=== PATIENT | female | born 1950 | race Asian ===

== ENCOUNTER 2018-10-16 13:07 | Outpatient (CLI) | payer OTHER ==
[2018-10-17] MEDS ORDERED: AMLO5TAB4 PO (06:15)
[2018-10-17] MEDS ORDERED: DULA0.75 SC (06:15)
== END 2018-10-16 23:59 | disposition home or self-care (01) ==
LOC: WOUND 13:07
PROVIDERS: ATTEND Internal Medicine
DX: I87.312 Chronic venous hypertension (idiopathic) with ulcer of left lower extremity (principal); L97.222 Non-pressure chronic ulcer of left calf with fat layer exposed; I89.0 Lymphedema, not elsewhere classified; E78.5 Hyperlipidemia, unspecified; E03.9 Hypothyroidism, unspecified
CPT/HCPCS: 99205

== ENCOUNTER 2018-10-16 14:24 | Inpatient (IN) | payer OTHER ==
[~2018-10-16] VITALS: Ht 157.5 cm; Wt 75.6 kg
--- NOTE | 2018-10-16 14:38 | NUR ---
Pt ambulates to room from triage with steady gait and balance. NADN. No obvious defecits observed.
--- NOTE | 2018-10-16 14:58 | NUR ---
Pt presents to ED with c/o Left lower extremity extensive circumfrental wound. Pt newly diagnosed diabetic and newly started on insulin. Pt has PMH of high blood pressure. Pt connected to NIBP, continous pulse ox, and quality assurance monitor body. Bedrails up x 2. Call light within reach. Family at bedside. NADN. No needs expressed. Pt denies cp, sob, n/v/d, syncope.
[2018-10-16 15:43] LABS: BASOPHILS # (AUTO) 0.07 x10^3/uL (0-0.1); BASOPHILS % (AUTO) 1 % (0-1); EOSINOPHILS # (AUTO) 0.29 x10^3/uL (0-0.4); EOSINOPHILS % (AUTO) 3 % (1-7); LYMPHOCYTES # (AUTO) 1.42 x10^3/uL (1-3.4); LYMPHOCYTES % (AUTO) 17 % (22-44); MD NO; MEAN CORPUSCULAR HEMOGLOBIN 28.1 pg (27.0-34.8); MEAN CORPUSCULAR HGB CONC 32.5 g/dL (32.4-35.8); MEAN CORPUSCULAR VOLUME 86.3 fL (80-100); MEAN PLATELET VOLUME 7.7 fL (7.4-10.4); MONOCYTES # (AUTO) 0.68 x10^3/uL (0.2-0.8); MONOCYTES % (AUTO) 8 % (2-9); NEUTROPHILS # (AUTO) 6.01 x10^3/uL (1.8-6.8); NEUTROPHILS % (AUTO) 71 % (42-75); PLATELET COUNT 328 x10^3/uL (130-400); RED BLOOD COUNT 4.09 x10^6/uL (3.82-5.3); RED CELL DISTRIBUTION WIDTH 15.8 % (9.6-15.2)
[2018-10-16 15:55] LABS: ALANINE AMINOTRANSFERASE 21 U/L (12-78); ALBUMIN 2.8 g/dL (3.4-5.0); ANION GAP 9 mmol/L (5-15); CALCIUM 8.4 mg/dL (8.5-10.1); CHLORIDE 108 mmol/L (98-107); CREATININE 0.73 mg/dL (0.55-1.02)
[2018-10-16 15:57] LABS: ALKALINE PHOSPHATASE 65 U/L (45-117); BILIRUBIN,TOTAL 0.3 mg/dL (0.2-1.0); TOTAL PROTEIN 7.9 g/dL (6.4-8.2)
--- NOTE | 2018-10-16 16:55 | NUR ---
Pt resting on gurney. Provided pt coffee with cream per request. EDMD aware. NADN. Pt resting on gurney connected to NIBP cuff, continous pulse ox, and surveillance system monitor. Bedrail up x 1, daughter and spouse and admitting doctor at bedside. Call light within reach.
--- NOTE | 2018-10-16 16:57 | NUR ---
Pt's daughter to bring in home med list/home meds. Unable to reconcile medications from home at this time.
--- NOTE | 2018-10-16 17:19 | NUR ---
Provided report to JAKE Owen. All questions answered. Pt ready to transfer to floor from ED.
--- NOTE | 2018-10-16 17:23 | NUR ---
Yellow slip sent to lab requesting medication per EMAR.
--- NOTE | 2018-10-16 17:25 | NUR ---
Pt transfered to floor from ED and left with all personal belongings.
[2018-10-16] MEDS ORDERED: MEROPENEM 1 GM in SODIUM CHLORIDE 0.9% 100 ML IV ONE (17:30)
[2018-10-16] MEDS ORDERED: DOCUSATE 100 MG CAPSULE PO PRN (17:30)
[2018-10-16] MEDS ORDERED: ACETAMINOPHEN 325 MG TABLET PO PRN (17:30)
[2018-10-16] MEDS: ENOXAPARIN 40 MG/0.4 ML SQ SCH (17:30)
[2018-10-16] MEDS ORDERED: hydrALAzine 20 MG/ML, 1ML IVPush PRN (17:30)
[2018-10-16] MEDS: PIPERACILLIN/TAZO/PMX 3.375GM 50 ML IV SCH ×2 (18:13→23:54)
[2018-10-16 19:48] VITALS: BP 141/85
[2018-10-16] MEDS: INSULIN LISPRO 100 UNITS/ML, PEN SQ-INSULIN SCH (21:41)
[2018-10-16] MEDS: INSULIN GLARGINE 100 UNITS/ML, PEN SQ-INSULIN SCH (21:41)
[2018-10-16] MEDS: HYDROcodone/APAP 5/325 TABLET PO PRN (21:41)
[2018-10-16] MEDS: MORPHINE SULFATE 4 MG/ML, 1ML IVPush PRN (23:54)
[2018-10-17 02:18] VITALS: BP 128/78
[2018-10-17] MEDS: PIPERACILLIN/TAZO/PMX 3.375GM 50 ML IV SCH ×4 (05:13→23:54)
[2018-10-17] MEDS: LEVOTHYROXINE 25 MCG TABLET PO SCH (05:38)
[2018-10-17 05:51] LABS: BASOPHILS # (AUTO) 0.04 x10^3/uL (0-0.1); BASOPHILS % (AUTO) 1 % (0-1); EOSINOPHILS # (AUTO) 0.21 x10^3/uL (0-0.4); EOSINOPHILS % (AUTO) 3 % (1-7); LYMPHOCYTES # (AUTO) 1.31 x10^3/uL (1-3.4); LYMPHOCYTES % (AUTO) 19 % (22-44); MD NO; MEAN CORPUSCULAR HEMOGLOBIN 28.2 pg (27.0-34.8); MEAN CORPUSCULAR HGB CONC 32.3 g/dL (32.4-35.8); MEAN CORPUSCULAR VOLUME 87.2 fL (80-100); MEAN PLATELET VOLUME 7.8 fL (7.4-10.4); MONOCYTES # (AUTO) 0.88 x10^3/uL (0.2-0.8); MONOCYTES % (AUTO) 13 % (2-9); NEUTROPHILS # (AUTO) 4.43 x10^3/uL (1.8-6.8); NEUTROPHILS % (AUTO) 64 % (42-75); PLATELET COUNT 303 x10^3/uL (130-400); RED BLOOD COUNT 3.55 x10^6/uL (3.82-5.3); RED CELL DISTRIBUTION WIDTH 15.8 % (9.6-15.2)
[2018-10-17 06:06] LABS: CHLORIDE 109 mmol/L (98-107)
[2018-10-17] MEDS ORDERED: DULA0.75 SC (06:15)
[2018-10-17] MEDS ORDERED: AMLO5TAB4 PO (06:15)
[2018-10-17 06:26] LABS: ANION GAP 6 mmol/L (5-15); CALCIUM 8.1 mg/dL (8.5-10.1); CHOL/HDL RATIO 3.7; CHOLESTEROL, TOTAL 103 mg/dL (140-239); CREATININE 0.59 mg/dL (0.55-1.02); HDL CHOL % 27 % (28-40); HDL CHOLESTEROL (DIRECT) 28 mg/dL (40-60); LDL CHOLESTEROL,CALCULATED 56 mg/dL (54-169); TRIGLYCERIDES 96 mg/dL (50-200); VLDL CHOLESTEROL 19 mg/dL (0-25)
[2018-10-17] MEDS: INSULIN LISPRO 100 UNITS/ML, PEN SQ-INSULIN SCH ×4 (07:00→21:00)
[2018-10-17] MEDS: LOSARTAN 50MG TABLET PO SCH (08:04)
[2018-10-17] MEDS ORDERED: DEXTROSE 5% 1,000 ML IV SCH (08:30)
[2018-10-17 08:52] VITALS: BP 130/81
[2018-10-17] MEDS ORDERED: LOSARTAN 50MG TABLET PO ONE (10:30)
[2018-10-17] MEDS: HYDROcodone/APAP 5/325 TABLET PO PRN ×3 (11:36→22:36)
[2018-10-17] MEDS: MORPHINE SULFATE 4 MG/ML, 1ML IVPush PRN (14:10)
[2018-10-17 15:07] VITALS: BP 127/60
[2018-10-17 16:48] LABS: SEDIMENTATION RATE 93 mm/hr (0-20)
[2018-10-17] MEDS: METOPROLOL TARTRATE 25 MG TABLET PO SCH ×2 (17:16→17:25)
[2018-10-17] MEDS: ENOXAPARIN 40 MG/0.4 ML SQ SCH (17:24)
[2018-10-17 17:25] LABS: HCT (SEDRATE) 32.8 % (34.6-47.8)
[2018-10-17 17:33] LABS: BLD PARASITE SMEAR NO ORGANISMS SEEN (NONE SEEN)
[2018-10-17 18:47] VITALS: BP 143/81
[2018-10-17] MEDS: INSULIN GLARGINE 100 UNITS/ML, PEN SQ-INSULIN SCH (21:00)
[2018-10-18] MEDS: MORPHINE SULFATE 4 MG/ML, 1ML IVPush PRN ×3 (00:06→18:54)
[2018-10-18 02:03] VITALS: BP 134/78
[2018-10-18] MEDS: METOPROLOL TARTRATE 25 MG TABLET PO SCH ×3 (05:35→18:59)
[2018-10-18] MEDS: LEVOTHYROXINE 25 MCG TABLET PO SCH (05:35)
[2018-10-18] MEDS: PIPERACILLIN/TAZO/PMX 3.375GM 50 ML IV SCH ×2 (05:35→11:16)
[2018-10-18] MEDS: INSULIN LISPRO 100 UNITS/ML, PEN SQ-INSULIN SCH ×4 (07:00→23:34)
[2018-10-18] MEDS: LOSARTAN 50MG TABLET PO SCH (09:10)
[2018-10-18 09:40] VITALS: BP 166/88
[2018-10-18 12:56] VITALS: BP 157/86
[2018-10-18] MEDS ORDERED: BUPIVACAINE/PF 0.5% ONE (15:18)
[2018-10-18] MEDS ORDERED: SUCCINYLCHOLINE 20 MG/ML, 10ML ONE (16:13)
[2018-10-18] MEDS ORDERED: ROCURONIUM 10 MG/ML,10ML ONE (16:13)
[2018-10-18] MEDS ORDERED: CEFAZOLIN 1,000 MG ONE (16:13)
[2018-10-18] MEDS ORDERED: DEXAMETHASONE 4 MG/ML, 1ML ONE (16:13)
[2018-10-18] MEDS ORDERED: MIDAZOLAM 1 MG/ML, 2ML ONE (16:25)
[2018-10-18] MEDS ORDERED: FENTANYL PF 100 MCG/2ML ONE ×2 (16:25→16:57)
[2018-10-18] MEDS ORDERED: HYDROmorphone 2 MG/ML, 1ML ONE (16:57)
[2018-10-18] MEDS ORDERED: OXYcodone 5 MG/5 ML ORAL.SOL UDC ONE (16:57)
[2018-10-18] MEDS ORDERED: ALBUTEROL SULFATE 2.5 MG/3 ML NPPB PRN (17:30)
[2018-10-18] MEDS ORDERED: HYDROmorphone 1 MG/ML, 1ML INJ IV PRN (17:30)
[2018-10-18] MEDS ORDERED: hydrALAzine 20 MG/ML, 1ML IV PRN ×2 (17:30)
[2018-10-18] MEDS ORDERED: ONDANSETRON 2MG/ML, 2ML IV PRN (17:30)
[2018-10-18] MEDS ORDERED: MEPERIDINE/PF 25MG/0.5ML IVPush PRN (17:30)
[2018-10-18] MEDS ORDERED: HYDROmorphone 2 MG/ML, 1ML IVPush PRN (17:30)
[2018-10-18] MEDS ORDERED: OXYcodone 5 MG/5 ML ORAL.SOL UDC PO PRN ×2 (17:30)
[2018-10-18] MEDS ORDERED: METOCLOPRAMIDE 5 MG/ML, 2ML IV PRN (17:30)
[2018-10-18] MEDS ORDERED: KETOROLAC 30 MG/1 ML IV PRN (17:30)
[2018-10-18] MEDS: ENOXAPARIN 40 MG/0.4 ML SQ SCH (17:30)
[2018-10-18] MEDS ORDERED: FENTANYL PF 100 MCG/2ML IV PRN ×2 (17:30)
[2018-10-18] MEDS ORDERED: PROMETHAZINE 25 MG/ML, 1ML IV PRN (17:30)
[2018-10-18] MEDS ORDERED: LABETALOL 5MG/ML, 20ML IV PRN ×2 (17:30)
[2018-10-18 19:27] VITALS: BP 132/89
[2018-10-18] MEDS: PIPERACILLIN/TAZO/PMX 4.5GM 100 ML IV SCH (21:12)
[2018-10-18] MEDS: INSULIN GLARGINE 100 UNITS/ML, PEN SQ-INSULIN SCH (23:34)
[2018-10-19 00:08] VITALS: BP 114/61
[2018-10-19] MEDS: HYDROcodone/APAP 5/325 TABLET PO PRN ×4 (00:55→21:06)
[2018-10-19] MEDS: PIPERACILLIN/TAZO/PMX 4.5GM 100 ML IV SCH ×4 (02:37→17:06)
[2018-10-19] MEDS: MORPHINE SULFATE 4 MG/ML, 1ML IVPush PRN (04:22)
[2018-10-19] MEDS: LEVOTHYROXINE 25 MCG TABLET PO SCH (05:41)
[2018-10-19 07:59] VITALS: BP 157/91
[2018-10-19] MEDS: LOSARTAN 50MG TABLET PO SCH (09:29)
[2018-10-19] MEDS: INSULIN LISPRO 100 UNITS/ML, PEN SQ-INSULIN SCH ×4 (09:30→21:04)
[2018-10-19 13:15] VITALS: BP 118/74
[2018-10-19] MEDS: ENOXAPARIN 40 MG/0.4 ML SQ SCH (17:46)
[2018-10-19] MEDS: METOPROLOL TARTRATE 25 MG TABLET PO SCH (17:46)
[2018-10-19 18:42] VITALS: BP 103/69
[2018-10-19] MEDS ORDERED: INSULIN GLARGINE 100 UNITS/ML, PEN SQ-INSULIN SCH (21:00)
[2018-10-20 00:49] VITALS: BP 145/88
[2018-10-20] MEDS: PIPERACILLIN/TAZO/PMX 4.5GM 100 ML IV SCH ×4 (01:59→20:30)
[2018-10-20] MEDS: HYDROcodone/APAP 5/325 TABLET PO PRN ×3 (02:56→11:01)
[2018-10-20] MEDS: LEVOTHYROXINE 25 MCG TABLET PO SCH (06:21)
[2018-10-20] MEDS: METOPROLOL TARTRATE 25 MG TABLET PO SCH ×3 (06:21→17:17)
[2018-10-20] MEDS: INSULIN LISPRO 100 UNITS/ML, PEN SQ-INSULIN SCH ×4 (07:00→20:32)
[2018-10-20 07:55] VITALS: BP 143/87
[2018-10-20] MEDS: LOSARTAN 50MG TABLET PO SCH (08:40)
[2018-10-20] MEDS: SODIUM HYPOCHLORITE TP SCH (11:02)
[2018-10-20] MEDS: MORPHINE SULFATE 4 MG/ML, 1ML IVPush PRN ×2 (12:20→20:24)
[2018-10-20 14:00] VITALS: BP 127/77
[2018-10-20] MEDS: ENOXAPARIN 40 MG/0.4 ML SQ SCH (16:50)
[2018-10-20 19:12] VITALS: BP 137/82
[2018-10-20] MEDS ORDERED: INSULIN GLARGINE 100 UNITS/ML, PEN SQ-INSULIN SCH (21:00)
[2018-10-21] MEDS: MORPHINE SULFATE 4 MG/ML, 1ML IVPush PRN ×2 (01:00→15:21)
[2018-10-21 01:47] VITALS: BP 146/86
[2018-10-21] MEDS: PIPERACILLIN/TAZO/PMX 4.5GM 100 ML IV SCH ×4 (02:12→20:19)
[2018-10-21] MEDS: LEVOTHYROXINE 25 MCG TABLET PO SCH (05:15)
[2018-10-21] MEDS: HYDROcodone/APAP 5/325 TABLET PO PRN ×3 (05:15→20:19)
[2018-10-21] MEDS: METOPROLOL TARTRATE 25 MG TABLET PO SCH ×2 (05:17→18:32)
[2018-10-21] MEDS: INSULIN LISPRO 100 UNITS/ML, PEN SQ-INSULIN SCH ×4 (07:00→21:00)
[2018-10-21 07:44] VITALS: BP 156/88
[2018-10-21] MEDS: LOSARTAN 50MG TABLET PO SCH (07:47)
[2018-10-21] MEDS: SODIUM HYPOCHLORITE TP SCH (09:00)
[2018-10-21 13:58] VITALS: BP 155/91
[2018-10-21] MEDS: ENOXAPARIN 40 MG/0.4 ML SQ SCH (17:02)
[2018-10-21 18:32] VITALS: BP 133/76
[2018-10-21 19:42] VITALS: BP 144/86
[2018-10-21] MEDS ORDERED: INSULIN GLARGINE 100 UNITS/ML, PEN SQ-INSULIN SCH (21:00)
[2018-10-22] MEDS: HYDROcodone/APAP 5/325 TABLET PO PRN ×3 (01:41→19:48)
[2018-10-22] MEDS: PIPERACILLIN/TAZO/PMX 4.5GM 100 ML IV SCH ×4 (01:41→20:51)
[2018-10-22 01:46] VITALS: BP 145/85
[2018-10-22] MEDS: MORPHINE SULFATE 4 MG/ML, 1ML IVPush PRN ×2 (05:13→16:02)
[2018-10-22] MEDS: LEVOTHYROXINE 25 MCG TABLET PO SCH (05:14)
[2018-10-22] MEDS: METOPROLOL TARTRATE 25 MG TABLET PO SCH ×2 (05:14→18:25)
[2018-10-22 05:47] LABS: CHLORIDE 108 mmol/L (98-107)
[2018-10-22 05:51] LABS: ANION GAP 6 mmol/L (5-15); CALCIUM 8.3 mg/dL (8.5-10.1); CREATININE 0.58 mg/dL (0.55-1.02)
[2018-10-22 05:54] LABS: BASOPHILS # (AUTO) 0.05 x10^3/uL (0-0.1); BASOPHILS % (AUTO) 1 % (0-1); EOSINOPHILS # (AUTO) 0.43 x10^3/uL (0-0.4); EOSINOPHILS % (AUTO) 5 % (1-7); LYMPHOCYTES # (AUTO) 3.25 x10^3/uL (1-3.4); LYMPHOCYTES % (AUTO) 38 % (22-44); MD NO; MEAN CORPUSCULAR HEMOGLOBIN 27.9 pg (27.0-34.8); MEAN CORPUSCULAR HGB CONC 31.8 g/dL (32.4-35.8); MEAN CORPUSCULAR VOLUME 87.8 fL (80-100); MEAN PLATELET VOLUME 6.9 fL (7.4-10.4); MONOCYTES # (AUTO) 0.87 x10^3/uL (0.2-0.8); MONOCYTES % (AUTO) 10 % (2-9); NEUTROPHILS # (AUTO) 4.06 x10^3/uL (1.8-6.8); NEUTROPHILS % (AUTO) 47 % (42-75); PLATELET COUNT 409 x10^3/uL (130-400); RED BLOOD COUNT 3.74 x10^6/uL (3.82-5.3); RED CELL DISTRIBUTION WIDTH 16.4 % (9.6-15.2)
[2018-10-22] MEDS: INSULIN LISPRO 100 UNITS/ML, PEN SQ-INSULIN SCH ×4 (07:00→20:52)
[2018-10-22 07:06] VITALS: BP 135/81
[2018-10-22] MEDS: LOSARTAN 50MG TABLET PO SCH (08:28)
[2018-10-22] MEDS: SODIUM HYPOCHLORITE TP SCH (09:00)
[2018-10-22] MEDS ORDERED: POTASSIUM CHLORIDE 20 MEQ TAB.ER.PRT PO ONE (10:30)
[2018-10-22 13:56] VITALS: BP 121/72
[2018-10-22 16:01] LABS: ANA SCREEN POSITIVE (Negative); ANTI-NUCLEAR ANTIBODY PATTERN NUCLEOLAR
[2018-10-22] MEDS: ENOXAPARIN 40 MG/0.4 ML SQ SCH (17:03)
[2018-10-22 18:25] VITALS: BP 131/79
[2018-10-22 20:00] VITALS: BP 137/80
[2018-10-22] MEDS: INSULIN GLARGINE 100 UNITS/ML, PEN SQ-INSULIN SCH (20:52)
[2018-10-23] MEDS: MORPHINE SULFATE 4 MG/ML, 1ML IVPush PRN ×2 (01:06→14:23)
[2018-10-23 01:50] VITALS: BP 118/75
[2018-10-23] MEDS: PIPERACILLIN/TAZO/PMX 4.5GM 100 ML IV SCH ×4 (02:23→20:42)
[2018-10-23] MEDS: HYDROcodone/APAP 5/325 TABLET PO PRN ×3 (02:23→18:31)
[2018-10-23 06:08] LABS: ANION GAP 6 mmol/L (5-15); CALCIUM 8.2 mg/dL (8.5-10.1); CHLORIDE 108 mmol/L (98-107)
[2018-10-23 06:11] LABS: CREATININE 0.72 mg/dL (0.55-1.02)
[2018-10-23] MEDS: METOPROLOL TARTRATE 25 MG TABLET PO SCH ×2 (06:25→18:30)
[2018-10-23] MEDS: LEVOTHYROXINE 25 MCG TABLET PO SCH (06:26)
[2018-10-23] MEDS: INSULIN LISPRO 100 UNITS/ML, PEN SQ-INSULIN SCH ×4 (07:00→20:07)
[2018-10-23 07:56] VITALS: BP 154/85
[2018-10-23] MEDS: LOSARTAN 50MG TABLET PO SCH (08:51)
[2018-10-23] MEDS: SODIUM HYPOCHLORITE TP SCH ×2 (09:00→15:45)
[2018-10-23 13:18] VITALS: BP 133/89
[2018-10-23] MEDS ORDERED: HYDR-3237 PO (16:14)
[2018-10-23] MEDS ORDERED: METO25TA35 PO (16:14)
[2018-10-23] MEDS ORDERED: INSU100I13 SQ-INSULIN (16:14)
[2018-10-23] MEDS: metFORMIN 500 MG TABLET PO SCH (17:00)
[2018-10-23] MEDS: ENOXAPARIN 40 MG/0.4 ML SQ SCH (18:30)
[2018-10-23 19:53] VITALS: BP 125/78
[2018-10-23] MEDS: INSULIN GLARGINE 100 UNITS/ML, PEN SQ-INSULIN SCH (20:07)
[2018-10-24] MEDS: PIPERACILLIN/TAZO/PMX 4.5GM 100 ML IV SCH ×3 (01:39→14:01)
[2018-10-24 02:12] VITALS: BP 114/72
[2018-10-24 05:06] VITALS: BP 143/86
[2018-10-24] MEDS: METOPROLOL TARTRATE 25 MG TABLET PO SCH (05:07)
[2018-10-24] MEDS: LEVOTHYROXINE 25 MCG TABLET PO SCH (05:07)
[2018-10-24] MEDS: INSULIN LISPRO 100 UNITS/ML, PEN SQ-INSULIN SCH ×2 (08:58→11:00)
[2018-10-24] MEDS: metFORMIN 500 MG TABLET PO SCH (08:58)
[2018-10-24] MEDS: LOSARTAN 50MG TABLET PO SCH (08:58)
[2018-10-24] MEDS: SODIUM HYPOCHLORITE TP SCH (09:00)
[2018-10-24 09:21] VITALS: BP 146/83
[2018-10-24] MEDS: MORPHINE SULFATE 4 MG/ML, 1ML IVPush PRN (09:43)
[2018-10-24] MEDS: HYDROcodone/APAP 5/325 TABLET PO PRN (11:03)
[2018-10-24] MEDS ORDERED: HYDR-3237 PO (11:25)
[2018-10-24] MEDS ORDERED: PIPE4.5F2 IV (12:55)
[2018-10-24 13:36] VITALS: BP 105/60
== END 2018-10-24 15:35 | disposition home or self-care (01) | DRG 603 ==
LOC: ED 16:28 → EDIP 16:42 → 3NE 17:40
PROVIDERS: ADMIT Internal Medicine; ATTEND Internal Medicine
PROC: 0JBP0ZX Excision of Left Lower Leg Subcutaneous Tissue and Fascia, Open Approach, Diagnostic (ICD-10-PCS; principal; 2018-10-18 16:00)
DX: L03.116 Cellulitis of left lower limb (principal); L97.929 Non-pressure chronic ulcer of unspecified part of left lower leg with unspecified severity; L97.919 Non-pressure chronic ulcer of unspecified part of right lower leg with unspecified severity; I10 Essential (primary) hypertension; E78.5 Hyperlipidemia, unspecified; B96.5 Pseudomonas (aeruginosa) (mallei) (pseudomallei) as the cause of diseases classified elsewhere; E03.9 Hypothyroidism, unspecified; I83.029 Varicose veins of left lower extremity with ulcer of unspecified site; Z16.23 Resistance to quinolones and fluoroquinolones; I89.0 Lymphedema, not elsewhere classified; I87.2 Venous insufficiency (chronic) (peripheral); Z83.3 Family history of diabetes mellitus; Z79.899 Other long term (current) drug therapy; Z90.49 Acquired absence of other specified parts of digestive tract; Z79.890 Hormone replacement therapy
CPT/HCPCS: 36415; 73590; 87046; 87427; 99285; S0020; 80048; 80053; 80061; 82962; 83605; 83735; 84100; 84443; 85025; 85651; 86038; 86039; 86430; 86682; 87015; 87040; 87070; 87075; 87077; 87102; 87116; 87186; 87205; 87206; 87207; 88305; 88312; 93922; 93970; G0378; J0690; J1100; J1170; J1650; J2250; J2543; J3010; J7070; J0330; J1815; J2270